=== PATIENT | male | born 1985 ===

== ENCOUNTER 2020-04-26 13:17 | Outpatient (CLI) | payer OTHER | END 2020-04-26 13:18 | disposition home or self-care (01) | LOC: COV 13:17 | PROVIDERS: ATTEND Family Medicine | DX: R50.9 Fever, unspecified (principal); R53.83 Other fatigue; J02.9 Acute pharyngitis, unspecified; Z20.828 Contact with and (suspected) exposure to other viral communicable diseases ==

== ENCOUNTER 2021-09-19 03:10 | Outpatient (CLI) | payer OTHER | END 2021-09-19 03:11 | disposition EMS.NT | LOC: EMS 03:10 | DX: R00.0 Tachycardia, unspecified (principal); R06.4 Hyperventilation ==

== ENCOUNTER 2021-11-02 06:05 | Outpatient (CLI) | payer OTHER | END 2021-11-02 06:06 | disposition critical access hospital (66) | LOC: EMS 06:05 | DX: R07.89 Other chest pain (principal); R20.0 Anesthesia of skin | CPT/HCPCS: A0425; A0427 ==

== ENCOUNTER 2021-11-02 06:40 | Emergency (ER) | payer OTHER ==
--- NOTE | 2021-11-02 07:59 | ED Physician Documentation ---
PD HPI CHEST PAIN - Stated complaint Stated Complaint: CP - Chief complaint Chief Complaint: Cardiac - History obtained from History obtained from: Patient - History of Present Illness Timing - onset: Enter time (399), Today Timing - onset during: Rest Timing - duration: Hours (2) Timing - details: Gradual onset, Now resolved Quality: Pressure Location: Left chest Radiation: Left upper extremity Improved by: Nitro, ASA Associated symptoms: Feeling faint / dizzy, Palpitations. No: Shortness of air, Diaphoresis, Nausea, Vomiting, General Weakness, Cough Similar symptoms before: Has not had sx before Recently seen: Not recently seen - Additional information Additional information: 35-year-old male indicates that 3 days ago he was at a [facility] where he was given some pills that apparently had "speed " in them. He had 1 of these pills left over and last night he decided to take it before going to bed and spent the night awake in his bed. Early in the morning he began to experience some pressure in the left side of his chest and some radiation of the symptoms into his left arm. He states the symptom in his left arm was mainly a numbness. The symptoms are now resolved. He did take some aspirin and some nitroglycerin.He has not been recently ill. Review of Systems Constitutional: denies: Fever Eyes: denies: Decreased vision Ears: denies: Ear pain Nose: denies: Congestion Throat: denies: Sore throat Cardiac: reports: Chest pain / pressure, Palpitations. denies: Pedal edema, Calf pain Respiratory: denies: Dyspnea, Cough, Wheezing GI: denies: Abdominal Pain, Nausea, Vomiting : denies: Dysuria, Frequency Skin: denies: Rash, Lesions Musculoskeletal: denies: Neck pain, Back pain, Extremity pain Neurologic: reports: Numbness (To the left arm now resolved). denies: Generalized weakness, Focal weakness PD PAST MEDICAL HISTORY - Past Medical History Past Medical History: Yes Derm: Rosacea - Past Surgical History Past Surgical History: No - Present Medications Home Medications: Ambulatory Orders Medication Instructions Recorded Confirmed No Known Home Medications 11/02/21 11/02/21 - Allergies Allergies/Adverse Reactions: Allergies Allergy/AdvReac Type Severity Reaction Status Date / Time No Known Drug Allergies Allergy Verified 11/02/21 06:43 - Social History Does the pt smoke?: No Smoking Status: Never smoker Does the pt drink ETOH?: Yes ETOH Use: Wine, Beer, Liquor Does the pt have substance abuse?: Yes Substance Use and Type: Other - Immunizations Immunizations are current?: Yes - POLST Patient has POLST: No PD ED PE NORMAL - Vitals Vital signs reviewed: Yes (Hypertensive) - General General: Alert and oriented X 3, No acute distress, Well developed/nourished - HEENT HEENT: Atraumatic, PERRL, EOMI - Neck Neck: Supple, no meningeal sign, No bony TTP - Cardiac Cardiac: RRR, No murmur - Respiratory Respiratory: No respiratory distress, Clear bilaterally, Other (no chest wall tenderness) - Abdomen Abdomen: Soft, Non tender - Back Back: No CVA TTP, No spinal TTP - Derm Derm: Normal color, Warm and dry, No rash - Extremities Extremities: No deformity, No edema - Neuro Neuro: Alert and oriented X 3, fence maker 2-12 intact, No motor deficit, No sensory deficit, Normal speech Eye Opening: Spontaneous Motor: Obeys Commands Verbal: Oriented GCS Score: 15 - Psych Psych: Normal mood, Normal affect Results - Vitals Vitals: Vital Signs - 24 hr 11/02/21 11/02/21 11/02/21 06:43 06:47 09:00 Temperature 36.3 C L Heart Rate 83 86 Respiratory 21 17 Rate Blood Pressure 134/99 H 138/97 H Blood Pressure 134/99 H [Left] O2 Saturation 100 100 Oxygen O2 Source Room air - EKG (time done) 0641 Rate: Rate (enter#) (69) Rhythm: NSR Ischemia: Normal ST segments Compare to prior EKG: Old EKG unavailable Computer interpretation: Agree with computer - Labs Labs: Laboratory Tests 11/02/21 11/02/21 11/02/21 07:59 07:59 07:59 WBC 7.5 RBC 4.81 Hgb 15.0 Hct 42.3 MCV 87.9 MCH 31.2 H MCHC 35.5 RDW 11.9 L Plt Count 257 MPV 8.7 Neut # (Auto) 5.7 Lymph # (Auto) 1.0 L [place] # (Auto) 0.7 Eos # (Auto) 0.0 Baso # (Auto) 0.0 Absolute Nucleated RBC 0.00 Nucleated RBC % 0.0 Sodium 137 Potassium 3.5 Chloride 100 L Carbon Dioxide 24 Anion Gap 13.0 BUN 12 Creatinine 1.0 Estimated GFR (MDRD) 86 L Glucose 98 Calcium 9.3 Total Bilirubin 1.2 H AST 25 ALT 36 Alkaline Phosphatase 33 L Troponin I High Sens 6.4 Total Protein 7.1 Albumin 4.4 Globulin 2.7 Albumin/Globulin Ratio 1.6 Lipase 29 Urine Opiates Screen Ur Oxycodone Screen Urine Methadone Screen Ur Propoxyphene Screen Ur Barbiturates Screen Ur Tricyclics Screen Ur Phencyclidine Scrn Ur Amphetamine Screen U Methamphetamines Scrn U Benzodiazepines Scrn Urine Cocaine Screen U Cannabinoids Screen 11/02/21 08:34 WBC RBC Hgb Hct MCV MCH MCHC RDW Plt Count MPV Neut # (Auto) Lymph # (Auto) [place] # (Auto) Eos # (Auto) Baso # (Auto) Absolute Nucleated RBC Nucleated RBC % Sodium Potassium Chloride Carbon Dioxide Anion Gap BUN Creatinine Estimated GFR (MDRD) Glucose Calcium Total Bilirubin AST ALT Alkaline Phosphatase Troponin I High Sens Total Protein Albumin Globulin Albumin/Globulin Ratio Lipase Urine Opiates Screen NEGATIVE Ur Oxycodone Screen NEGATIVE Urine Methadone Screen NEGATIVE Ur Propoxyphene Screen NEGATIVE Ur Barbiturates Screen NEGATIVE Ur Tricyclics Screen NEGATIVE Ur Phencyclidine Scrn NEGATIVE Ur Amphetamine Screen POSITIVE H U Methamphetamines Scrn POSITIVE H U Benzodiazepines Scrn NEGATIVE Urine Cocaine Screen NEGATIVE U Cannabinoids Screen NEGATIVE - Rads (name of study) Chest Radiology: Prelim report reviewed (Impression: No acute cardiopulmonary pathology.), EMP read indepedently, See rad report PD MEDICAL DECISION MAKING - ED course Complexity details: reviewed old records, reviewed results, re-evaluated patient, considered differential, d/w patient ED course: 35-year-old male with an ingestion of unknown substance assumed to be amphetamine or methamphetamine has had a sleepless night and pressure in his chest. His resting electrocardiogram is entirely normal with a normal rate. There is no chest wall tenderness. His troponin is normal. Departure - Departure Disposition: 01 Home, Self Care Clinical Impression: Atypical chest pain, Methamphetamine abuse Condition: Stable Instructions: ED Chest Pain Atypical Unkn Cause, ED Drug Abuse General Follow-Up: [facility] [Provider Group] Comments: Kane, today there does not appear to be any damage to your heart from the amphetamine and methamphetamine you ingested last night. Our expectation is complete resolution of any symptoms within the next 12 hours. My recommendation is to not take any medications that are sold to you as illicit drugs as currently there is a problem with the illicit drug supply. There is fentanyl in them and this can cause an unexpected overdose.
[2021-11-02 08:03] LABS: BASOPHILS % (AUTO) 0.3 %; EOSINOPHILS % (AUTO) 0.3 %; HCT - HEMATOCRIT 42.3 % (42.0-52.0); LYMPHOCYTES % (AUTO) 13.9 %; MEAN CORPUSCULAR HEMOGLOBIN 31.2 pg (27.0-31.0); MEAN CORPUSCULAR HGB CONC 35.5 g/dL (32.0-36.0); MEAN CORPUSCULAR VOLUME 87.9 fL (80.0-94.0); MEAN PLATELET VOLUME 8.7 fL (7.4-11.4); MONOCYTES # (AUTO) 0.7 10^3/uL (0.0-1.0); MONOCYTES % (AUTO) 8.7 %; NEUTROPHILS # (AUTO) 5.7 10^3/uL (1.5-6.6); NEUTROPHILS % (AUTO) 76.7 %; PLT - PLATELET COUNT 257 10^3/uL (130-450); RED BLOOD COUNT 4.81 10^6/uL (4.70-6.10); RED CELL DISTRIBUTION WIDTH 11.9 % (12.0-15.0); WHITE BLOOD COUNT 7.5 x10^3/uL (4.8-10.8)
--- NOTE | 2021-11-02 08:34 | XRAY Report ---
PROCEDURE: Chest 1 View X-Ray INDICATIONS: chest pain TECHNIQUE: One view of the chest was acquired. COMPARISON: None FINDINGS: Surgical changes and devices: None. Lungs and pleura: No pleural effusions or pneumothorax. Lungs are clear. Mediastinum: Mediastinal contours appear normal. Heart size is normal. Bones and chest wall: No suspicious bony lesions. Overlying soft tissues appear unremarkable. IMPRESSION: No acute cardiopulmonary pathology. Reviewed by: Niranjan Sunshine MD on 11/02/2021 8:33 AM [facility] Approved by: Niranjan Sunshine MD on 11/02/2021 8:33 AM [facility] Station ID: [id number]
[2021-11-02 08:38] LABS: ALBUMIN 4.4 g/dL (3.2-5.5); ALBUMIN/GLOBULIN RATIO 1.6 (1.0-2.2); BILIRUBIN,TOTAL 1.2 mg/dL (0.2-1.0); CALCIUM 9.3 mg/dL (8.5-10.3); POTASSIUM 3.5 mmol/L (3.5-5.0); TOTAL PROTEIN 7.1 g/dL (6.7-8.2)
[2021-11-02 08:43] LABS: MUDS CUTOFF CONCENTRATIONS CUTOFF CONC BELOW:
[2021-11-02 08:55] LABS: AMPHETAMINE SCREEN,URINE POSITIVE (NEGATIVE); BARBITURATE SCREEN,UR NEGATIVE (NEGATIVE); BENZODIAZEPINES SCREEN, URINE NEGATIVE (NEGATIVE); COCAINE SCREEN URINE NEGATIVE (NEGATIVE); METHADONE SCREEN, URINE NEGATIVE (NEGATIVE); METHAMPHETAMINES SCREEN, URINE POSITIVE (NEGATIVE); OPIATE SCREEN, URINE NEGATIVE (NEGATIVE); OXYCODONE SCREEN, URINE NEGATIVE (NEGATIVE); PROPOXYPHENE SCREEN, URINE NEGATIVE (NEGATIVE); THC CANNABINOID SCREEN, URINE NEGATIVE (NEGATIVE); TRICYCLIC ANTIDEPRESSANT,URINE NEGATIVE (NEGATIVE)
[2021-11-02 09:01] VITALS: BP 138/97
== END 2021-11-02 09:17 | disposition home or self-care (01) ==
LOC: EDUNIT# → ED 06:40
DX: F15.10 Other stimulant abuse, uncomplicated (principal); R07.89 Other chest pain
CPT/HCPCS: 36415; 80053; 80306; 83690; 84484; 85025; 93005; 99284